=== PATIENT | female | born 1970 | race African-American/Black ===

== ENCOUNTER 2017-03-09 20:32 | Emergency (ER) | payer OTHER ==
--- NOTE | ~2017-03-09 | EKG ---
PATIENT: MELLO MCKEON UNIT #: [id number] Ventricular Rate: 72 BPM Atrial Rate: 72 BPM P-R Interval: 178 ms QRS Duration: 68 ms Q-T Interval: 386 ms QTC Calculation(Bezet): 422 ms P Claunch: 41 degrees Calculated R Claunch: 18 degrees Calculated T Claunch: 13 degrees Diagnosis Line: Normal sinus rhythm Diagnosis Line: Normal ECG Diagnosis Line: Diagnosis Line: Confirmed by JESUS HEIN MD ([id number]) on Diagnosis Line: 03/11/2017 8:46:18 AM INTERPRETING MD: ANGEL LUIS GRECO
--- NOTE | ~2017-03-09 | CR72 ---
[facility] A Service of [facility] & [facility] RADIOLOGY TEXT RESULTS PATIENT: MELLO MCKEON LOCATION: [facility] : 70 UNIT #: [id number] AGE: [address]: Isabel Rai MD SEX: F ORDER DR: [id number] [facility] [address] [place], [place] [address] [id number] MR#: [id number] Acc #: [id number] NAME: MELLO BUI : 1970 SEX: F STUDY DATE/TIME: 03/09/2017 22:13 UNIT: [facility] ROOM: STUDY DESCRIPTION: CR Chest Single View Portable Attending Physician: Isabel Rai M.D. Ordering Physician: Isabel Rai M.D. Primary Care Physician: Primary Care Physician No MEDICAL IMAGING REPORT This report is preliminary unless electronic signature is present EXAM Single view chest INDICATIONS Dyspnea. Shortness of air. Left-sided rib pain. FINDINGS Single portable AP view of the chest compared to 12/09/2015. Heart and mediastinal contours are unchanged. No new pulmonary opacities. IMPRESSION No acute findings. Dictated by... Ephraim Montano M.D. THIS IS AN ELECTRONICALLY VERIFIED REPORT Ephraim Montano M.D. at 03/10/2017 3:24 AM Remedios/justin TD: 03/10/2017 02:30 JOB #: [id number] MEDICAL IMAGING REPORT Page 1 of 1 COPY
--- NOTE | ~2017-03-09 | CT4 ---
[facility] A Service of [facility] & [facility] RADIOLOGY TEXT RESULTS PATIENT: MELLO MCKEON LOCATION: [facility] : 70 UNIT #: [id number] AGE: [address]: Isabel Rai MD SEX: F ORDER DR: [id number] [place] [id number] [facility]. [place], [place] [address] [id number] E MR#: [id number] Acc #: [id number] NAME: MELLO BUI : 1970 SEX: F STUDY DATE/TIME: 03/09/2017 22:50 UNIT: [facility] ROOM: STUDY DESCRIPTION: CT Abd and Pelv Wo Cont Attending Physician: Isabel Rai M.D. Ordering Physician: Isabel Rai M.D. Primary Care Physician: Primary Care Physician No MEDICAL IMAGING REPORT This report is preliminary unless electronic signature is present EXAM CT abdomen and pelvis INDICATION Low back pain radiating to the abdomen. Shortness of air for 2 months. Left flank pain. Left lower quadrant pain. TECHNIQUE CT of the abdomen and pelvis without contrast. Coronal and sagittal reconstructions were obtained. This CT exam was performed with one or more of the following radiation dose reduction techniques: automatic exposure control, adjustment of mA and/or kV according to patient size, and iterative reconstruction. COMPARISON CT abdomen and pelvis dated 03/05/2015 FINDINGS There is a noncalcified pulmonary nodule in the left lower lobe measuring 1.4 cm x 1.1 cm. This nodule is not identified on the prior CT scan from 2014. This nodule has low internal attenuation of approximately 4 Hounsfield units. This would suggest a benign etiology, however, its development since the prior study is concerning for possible malignancy. The solid abdominal organs are unchanged. There is calcification within the tail of the pancreas consistent with a chronic pancreatitis. A small low-attenuation collection in the left pericolic gutter has significantly decreased in size. This measures 2.1 cm x 1.3 cm compared to 3.1 cm x 2.4 cm previously. Gallbladder is not distended. The bowel is not dilated. No enlarged retroperitoneal or mesenteric lymph nodes. The appendix is normal. STS. [facility] A Service of [facility] & [facility] RADIOLOGY TEXT RESULTS PATIENT: MELLO MCKEON LOCATION: [facility] : 70 UNIT #: [id number] AGE: [address]: Isabel Rai MD SEX: F ORDER DR: PELVIS: Bladder is unremarkable. The uterus is presumed surgically absent. No enlarged pelvic or inguinal lymph nodes. There is a small umbilical hernia. IMPRESSION 1. No acute findings of the abdomen or pelvis to account for the patient's symptoms. 2. Development of a 1.4 cm noncalcified pulmonary nodule in the periphery of the medial left lower lobe. This is new from 2015. Both benign and malignant etiologies should be considered. The low attenuation of the lesion would be usual for pulmonary malignancy, however, it has developed since the prior study. 3. Calcification at the pancreatic tail suggests prior pancreatitis. A small fluid collection adjacent the pancreatic tail in the left pericolic gutter has decreased in size. Dictated by... Ephraim Montano M.D. THIS IS AN ELECTRONICALLY VERIFIED REPORT Ephraim Montano M.D. at 03/10/2017 3:24 AM GLEN/ehsan TD: 03/10/2017 02:49 JOB #: [id number] MEDICAL IMAGING REPORT Page 1 of 1 COPY
[~2017-03-09 20:32] MED LIST: ACID CONTROL20 MG PO; AFRIN15 M1 NS; ALBUTEROL17 GM; ALBUTEROL17 GM INH; ALLERGY RELIEF10 M6 PO; AMOXICILLIN500 M1 PO; ANTIVERT PO; AUGMENTIN PO; AZATHIOPRINE50 M1 PO; BAYER CHEWABLE81 MG PO; BUDESONIDE EC3 MG PO; CALCIUM + D 6001 TA1 PO; CLARITIN-D1 TAB.SR3 PO; FAMOTIDINE20 M1 PO; FLEXERIL10 MG PO; FLONASE 0.05% N16 G1; GENSING PO; HCTZ PO; HYDROCODONE/APA1 T16 PO; IRON1 TAB PO; LORTAB 5/500 TA1 TA1 PO; MAGNESIUM400 MG PO; MOBIC15 MG PO; MONTELUKAST SOD10 MG PO; NEURONTIN300 MG; NEURONTIN300 MG PO; NO MEDICATIONS; ONE DAILY MULTI1 TA3 PO; PRILOSEC20 MG PO; STOOL SOFTENER100 M1 PO; SYMBICORT 16010.2 GM IH; TUDORZA PRESS400 MCG; VITAMIN B 12 PO; VITAMIN D400 UNI2 PO; VOLTAREN75 MG PO; ZINC30 MG PO; ZITHROMAX PO; ZYRTEC5 M4 PO; [UNRECOGNIZED DRUG - REMARK] PO
[2017-03-09 21:46] LABS: URINE SOURCE CLEAN CATCH
[2017-03-09 21:57] LABS: URINE APPEARANCE CLEAR; URINE BILIRUBIN NEG (NEG); URINE BLOOD NEG (NEG); URINE COLOR YELLOW; URINE GLUCOSE NEG (NEG); URINE KETONE NEG (NEG); URINE LEUKOCYTE ESTERASE NEG (NEG); URINE NITRATE NEG (NEG); URINE PROTEIN NEG (NEG)
[2017-03-09 21:59] LABS: CULTURE INDICATED? NO
[2017-03-09 22:15] LABS: BASOPHIL# 0.1 X10e3 (0-0.3); BASOPHIL% 0.7 % (0-2.5); EOSINOPHIL# 0.2 X10e3 (0-0.7); EOSINOPHIL% 2.6 % (0.0-7.0); HEMATOCRIT 46.3 % (35.0-45.0); HEMOGLOBIN 14.7 gm/dL (12.0-16.0); LYMPHOCYTE# 3.1 X10e3 (1.0-3.5); LYMPHOCYTE% 39.1 % (17.0-45.0); MEAN CELL VOLUME 70.7 FL (83-96); MEAN CORPUSCULAR HEMOGLOBIN 22.5 PG (28-34); MEAN CORPUSCULAR HGB CONC 31.8 g/dL (30-36); MEAN PLATELET VOLUME 9.2 FL (6.5-11.5); MONOCYTE# 0.8 X10e3 (0-1.0); MONOCYTE% 10.3 % (3.0-12.0); NEUTROPHIL# 3.7 X10e3 (1.5-7.1); NEUTROPHIL% 47.3 % (40-75); PLATELET COUNT 200 X10e3 (140-420); RED BLOOD COUNT 6.54 X10e (3.90-5.30); RED CELL DISTRIBUTION WIDTH 15.4 % (11.0-15.5); WHITE BLOOD COUNT 7.8 X10e3 (4.0-10.5)
[2017-03-09 22:23] LABS: DIFF IND NO
[2017-03-09 22:38] LABS: PARTIAL THROMBOPLASTIN TIME 30.1 SECONDS (23.5-31.3)
[2017-03-09 22:42] LABS: ALBUMIN SERUM 3.9 g/dL (3.5-5.0); BILIRUBIN, DIRECT 0.1 mg/dL (0.0-0.2); BILIRUBIN,INDIRECT 0.3 mg/dL (0.0-0.9); BILIRUBIN,TOTAL 0.4 mg/dL (0.2-2.0); BUN/CREATININE RATIO 17.77; CALCIUM SERUM 9.5 mg/dL (8.4-10.2); CREATININE SERUM 0.9 mg/dL (0.6-1.4); GLOM FILT RATE Estimated 88.3 mL/min (>60); POTASSIUM 3.3 mmol/L (3.5-5.1); PROTEIN TOTAL SERUM 8.5 g/dL (6.0-8.3)
[2017-03-09 22:59] LABS: POC - CKMB 1.5 ng/mL (0.0-7.9); POC - TROPONIN <0.05 ng/mL (<=0.05)
[2017-03-10 08:08] LABS: POC - CKMB <1.0 ng/mL (0.0-7.9); POC - TROPONIN <0.05 ng/mL (<=0.05)
== END 2017-03-10 00:37 | disposition home or self-care (01) ==
LOC: CED 20:32
PROVIDERS: Emergency Medicine
DX: M54.5 Low back pain (principal); J44.9 Chronic obstructive pulmonary disease, unspecified; F32.9 Major depressive disorder, single episode, unspecified; G62.9 Polyneuropathy, unspecified; F17.210 Nicotine dependence, cigarettes, uncomplicated; Z88.5 Allergy status to narcotic agent; Z91.040 Latex allergy status; Z91.013 Allergy to seafood; R10.9 Unspecified abdominal pain; G89.29 Other chronic pain
CPT/HCPCS: 36415; 71010; 74176; 80048; 80076; 81003; 82553; 83690; 84484; 84703; 85025; 85610; 85730; 93005; 96361; 96374; 99284; J1885